=== PATIENT | male | born 1990 | race African-American/Black ===

== ENCOUNTER 2021-06-14 16:22 | Emergency (ER) | payer OTHER ==
[2021-06-14 17:25] VITALS: BP 176/88
== END 2021-06-14 17:45 | disposition home or self-care (01) ==
LOC: ED 16:22
DX: U07.1 COVID-19 (principal)

== ENCOUNTER 2022-10-18 16:07 | Emergency (ER) | payer OTHER ==
[~2022-10-18] VITALS: Ht 175.3 cm; Wt 68.0 kg
[2022-10-18 18:01] LABS: URINE BILIRUBIN - DIPSTICK NEGATIVE (NEGATIVE); URINE BLOOD DIPSTICK NEGATIVE (NEGATIVE); URINE COLOR YELLOW; URINE GLUCOSE - DIPSTICK NEGATIVE (NEGATIVE); URINE KETONE NEGATIVE (NEGATIVE); URINE PH 7.5 (4.5-8.0); URINE PROTEIN - DIPSTICK NEGATIVE (NEG-TRACE)
[2022-10-18 18:02] LABS: URINE LEUK ESTERASE SMALL (NEGATIVE); URINE NITRITE - DIPSTICK NEGATIVE (Negative)
[2022-10-18 18:09] LABS: URINE WBC 50-100 WBC/hpf (0-5)
[2022-10-18] MEDS ORDERED: KEFLEX500 MG PO (19:00)
[2022-10-18 19:15] VITALS: BP 125/83
== END 2022-10-18 19:20 | disposition home or self-care (01) ==
LOC: ED 16:07
PROVIDERS: Emergency Medicine
DX: R36.9 Urethral discharge, unspecified (principal); N39.0 Urinary tract infection, site not specified; F17.200 Nicotine dependence, unspecified, uncomplicated